=== PATIENT | female | born 1970 | race Caucasian/White ===

== ENCOUNTER → 2017-01-20 | Outpatient (CLI) | payer OTHER ==
--- NOTE | 2017-01-20 10:20 | US ---
EXAMINATION TYPE: US pelvis complete transvag DATE OF EXAM: 01/20/2017 COMPARISON: NONE CLINICAL HISTORY: 46-year-old female N92.4 menorrhagiaia. TECHNIQUE: Portable transabdominal sonographic images of the pelvis are obtained. Transvaginal scann ing was medically necessary to better evaluate the anatomy. Date of LMP: 01/13/17 FINDINGS: Uterus: Retroverted measuring 9.3 x 5.6 x 5.9 cm. There is diffuse myometrial heterogeneity. There i s a round 1.9 x 1.5 cm hypoechoic mass within the right anterior uterine fundus/body. This is intramu ral but has mass effect on to the anterior endometrium. Endometrial Stripe: 1.5 cm, thickened to the upper limits of normal. Trace fluid within the uterine c avity. Right Ovary: 3.2 x 2.0 x 2.1 cm for a volume of 7.1 mL. Left Ovary: 4.8 x 2.9 x 2.2 cm for a volume of 15.3 mL. Prominent follicular change is present. A 1.9 cm round hypoechoic structure within probably represents a corpus luteum. No evident adnexal abnormality or cul-de-sac free fluid. IMPRESSION: 1. Retroverted uterus. Myometrial heterogeneity may reflect diffuse small fibroid change or adenomyos is. 2. A 1.9 cm focal fibroid along the right anterior uterine fundus/body is primarily intramural but ma y have a submucosal component as there is mass effect onto the endometrium. 3. Endometrium thickened to the upper limits of normal with trace fluid in the uterine cavity. This s hould correspond to the late secretory or menstrual phase of the patient's cycle. Clinically correlat e. 4. Prominent follicular change in the left ovary.
--- NOTE | 2017-01-20 11:40 | ECHOF ---
Referral Reason:R00.2 palpitations MEASUREMENTS -------- HEIGHT: 165.1 cm WEIGHT: 68.0 kg BP: 129/63 IVSd: 0.8 cm (0.6 - 1.1) LVIDd: 3.9 cm (3.9 - 5.3) LVPWd: 1.0 cm (0.6 - 1.1) IVSs: 0.7 cm LVIDs: 3.0 cm LVPWs: 1.2 cm LAESV Index (A-L): 22.98 ml/m Ao Diam: 2.7 cm (2.0 - 3.7) AV Cusp: 1.5 cm (1.5 - 2.6) LA Diam: 3.5 cm (2.7 - 3.8) MV EXCURSION: 22.169 mm (> 18.000) MV EF SLOPE: 111 mm/s (70 - 150) EPSS: 0.2 cm MV E Roberto Carlos: 0.58 m/s MV DecT: 193 ms MV A Roberto Carlos: 0.59 m/s MV E/A Ratio: 0.97 RAP: 5.00 mmHg RVSP: 13.29 mmHg FINDINGS -------- Sinus rhythm. This was a technically good study. LV size, wall thickness and systolic function are normal, with an EF greater than 55%. The right ventricle is normal in size. Normal LA size by volume 22+/-6 ml/m2. The right atrial size is normal. The aortic valve is trileaflet, and appears structurally normal. No aortic stenosis or regurgitation. Mild mitral regurgitation is present. Mild tricuspid regurgitation present. There is no evidence of pulmonary hypertension. The right ventricular systolic pressure, as measured by Doppler, is 13.29mmHg. There is no pulmonic regurgitation present. The aortic root size is normal. There is no pericardial effusion. CONCLUSIONS -------- 1. LV size, wall thickness and systolic function are normal, with an EF greater than 55%. 2. Mild mitral regurgitation is present. 3. Mild tricuspid regurgitation present. 4. There is no evidence of pulmonary hypertension. 5. The right ventricular systolic pressure, as measured by Doppler, is 13.29mmHg. 6. There is no pulmonic regurgitation present. CORRECTION LIEUTENANT: Zainab Campbell RDCS
== END | disposition home or self-care (01) ==
LOC: RADUSMAIN 09:20
PROVIDERS: ATTEND Family Medicine
DX: D25.9 Leiomyoma of uterus, unspecified (principal); N85.4 Malposition of uterus; R93.8 Abnormal findings on diagnostic imaging of other specified body structures; I34.0 Nonrheumatic mitral (valve) insufficiency; I07.1 Rheumatic tricuspid insufficiency
CPT/HCPCS: 76830; 76856; 93225; 93226; 93306

== ENCOUNTER → 2019-02-04 | Outpatient (CLI) | payer OTHER ==
--- NOTE | 2019-02-05 13:51 | MM ---
Reason for exam: screening (asymptomatic). Last mammogram was performed 3 years ago. History: Family history of breast cancer in cousin at age 40. Took hormonal contraceptives for 2 years. Physical Findings: A clinical breast exam by your physician is recommended on an annual basis and results should be correlated with mammographic findings. MG 3D Screening Mammo W/Cad Bilateral CC and MLO view(s) were taken. Prior study comparison: January 28, 2016, bilateral MG 3d diag mammo w/cad [facility]. April 24, 2013, bilateral digital screening mammo w/CAD. The breast tissue is heterogeneously dense. This may lower the sensitivity of mammography. No suspicious abnormality on the right. Left upper outer quadrant middle depth architectural distortion on 3D. ASSESSMENT: Incomplete: need additional imaging evaluation, BI-RAD 0 RECOMMENDATION: Special view mammogram of the left breast. If lesion persists on supplemental views, image directed ultrasound is recommended. [facility] will attempt to contact patient to return for supplemental views and ultrasound if indicated.
== END | disposition home or self-care (01) ==
LOC: RADMAMWWP 10:57
PROVIDERS: ATTEND Obstetrics & Gynecology
DX: Z12.31 Encounter for screening mammogram for malignant neoplasm of breast (principal)
CPT/HCPCS: 77063; 77067

== ENCOUNTER → 2019-02-13 | Outpatient (CLI) | payer OTHER ==
--- NOTE | 2019-02-14 09:33 | MM ---
Reason for exam: additional evaluation requested from abnormal screening. Last mammogram was performed less than 1 month ago. History: Family history of breast cancer in cousin at age 40. Took hormonal contraceptives for 2 years. Physical Findings: Nurse did not find any significant physical abnormalities on exam. MG 3D Work Up W/Cad LT CC and MLO view(s) were taken of the left breast. Prior study comparison: February 04, 2019, bilateral MG 3d screening mammo w/cad. January 28, 2016, bilateral MG 3d diag mammo w/cad [facility]. The breast tissue is heterogeneously dense. This may lower the sensitivity of mammography. Focal asymmetry left LM rounded, not on CC. These results were verbally communicated with the patient and result sheet given to the patient on 02/13/19. ASSESSMENT: Incomplete: need additional imaging evaluation, BI-RAD 0 RECOMMENDATION: Ultrasound of the left breast.
--- NOTE | 2019-02-14 09:37 | USB ---
Reason for exam: additional evaluation requested from abnormal screening. History: Family history of breast cancer in cousin at age 40. Took hormonal contraceptives for 2 years. US Breast Workup Limited LT Left limited breast ultrasound including focal area of concern, retroareolar and axilla demonstrates a 0.8 x 0.5 x 0.5cm cystic lesion at 2 o'clock. These results were verbally communicated with the patient and result sheet given to the patient on 02/13/19. ASSESSMENT: Probably benign, BI-RAD 3 RECOMMENDATION: Follow-up diagnostic mammogram and ultrasound of the left breast in 6 months.
== END | disposition home or self-care (01) ==
LOC: RADMAMWWP 14:56
PROVIDERS: ATTEND Obstetrics & Gynecology
DX: R92.8 Other abnormal and inconclusive findings on diagnostic imaging of breast (principal)
CPT/HCPCS: 77061; 77065

== ENCOUNTER → 2020-02-14 | Outpatient (CLI) | payer OTHER ==
--- NOTE | 2020-02-17 07:58 | MM ---
Reason for exam: follow-up at short interval from prior study. Last mammogram was performed 1 year ago. History: Family history of breast cancer in cousin at age 40. Took hormonal contraceptives for 2 years. Physical Findings: Nurse Summary: 0.5cm nodule in the left breast at 12 o'clock (nurse clementine). MG 3D Diag Mammo W/Cad LT CC and MLO view(s) were taken of the left breast. Prior study comparison: February 13, 2019, left breast MG 3d work up w/cad LT. February 04, 2019, bilateral MG 3d screening mammo w/cad. The breast tissue is heterogeneously dense. This may lower the sensitivity of mammography. Benign appearing calcifications in the left breast. These results were verbally communicated with the patient and result sheet given to the patient on 02/14/20. ASSESSMENT: Incomplete: need additional imaging evaluation, BI-RAD 0 RECOMMENDATION: Ultrasound of the left breast.
--- NOTE | 2020-02-17 08:00 | USB ---
Reason for exam: additional evaluation requested from abnormal screening. History: Family history of breast cancer in cousin at age 40. Took hormonal contraceptives for 2 years. US Breast Limited LT Left limited breast ultrasound including focal area of concern, retroareolar and axilla demonstrates a 0.8 x 0.7 x 0.5cm oval, irregular, cystic cluster at 2 o'clock, a 0.4 x 0.5 x 0.2cm oval, complex, cystic lesion at 3 o'clock and a 2.0 x 2.1 x 0.8cm oval lymph node at the axilla. These results were verbally communicated with the patient and result sheet given to the patient on 02/14/20. ASSESSMENT: Probably benign, BI-RAD 3 RECOMMENDATION: Follow-up diagnostic mammogram of both breasts in 6 months.
== END | disposition home or self-care (01) ==
LOC: RADMAMWWP 14:21
PROVIDERS: ATTEND Obstetrics & Gynecology
DX: R92.8 Other abnormal and inconclusive findings on diagnostic imaging of breast (principal)
CPT/HCPCS: 77061; 77065

== ENCOUNTER → 2022-01-27 | Outpatient (CLI) | payer OTHER ==
--- NOTE | 2022-01-27 14:18 | MM ---
Reason for Exam: Follow-up at short interval from prior study. Last mammogram was performed 3 year(s) and 0 month(s) ago. Patient History: Menarche at age 14. First Full-Term at age 20. Patient used Hormonal Contraceptives for 2 years. Maternal cousin had breast cancer, age 40. Last menstrual period: 01/19/2022 Risk Values: Loretta 5 year model risk: 0.9%. NCI Lifetime model risk: 7.1%. Tissue Density: The breast tissue is heterogeneously dense. This may lower the sensitivity of mammography. Findings: Analyzed By CAD. Dense tissues are present in the upper outer quadrant on a background of scattered densities. Chronic low density nodularity anterior to middle depth right breast. 2 areas of asymmetric density left MLO view superiorly and anteriorly do not persist on spot 3-D images. Findings compatible with superimposition shadow. No significant change from prior exams. Overall Assessment: Benign, BI-RAD 2 Management: Screening Mammogram of both breasts in 1 year. 1. Patient should continue monthly self breast exams. 2. A clinical breast exam by your physician is recommended on an annual basis. 3. This exam should not preclude additional follow-up of suspicious palpable abnormalities. Results were given to the patient verbally at the time of exam. Electronically signed and approved by: Mlelo Yates M.D. Radiologist
== END | disposition home or self-care (01) ==
LOC: RADMAMWWP 13:24
PROVIDERS: ATTEND Family Medicine
DX: R92.8 Other abnormal and inconclusive findings on diagnostic imaging of breast (principal)
CPT/HCPCS: 77062; 77066

== ENCOUNTER → 2023-06-30 | Outpatient (CLI) | payer BC, OTHER ==
--- NOTE | 2023-06-30 13:13 | MM ---
Reason for Exam: Screening (asymptomatic). Last mammogram was performed 1 year(s) and 5 month(s) ago. Patient History: Menarche at age 14. First Full-Term at age 20. Patient used Hormonal Contraceptives for 2 years. Maternal cousin had breast cancer, age 40. Risk Values: Loretta 5 year model risk: 0.9%. NCI Lifetime model risk: 7.0%. Prior Study Comparison: 02/13/2019 Left Diagnostic Mammogram, [facility]. 02/14/2020 Left Diagnostic Mammogram, [facility]. 01/27/2022 Bilateral MG 3D diag mammo w/cad [facility], [facility]. Tissue Density: The breast tissue is heterogeneously dense. This may lower the sensitivity of mammography. Findings: Analyzed By CAD. There is no suspicious group of microcalcifications or new suspicious mass. Overall Assessment: Negative, BI-RAD 1 Management: Screening Mammogram of both breasts in [address] [facility] will attempt to contact patient to return for supplemental views and ultrasound if indicated. Patient should continue monthly self-breast exams. A clinical breast exam by your physician is recommended on an annual basis. This exam should not preclude additional follow-up of suspicious palpable abnormalities. Note on Loretta scores and lifetime risk: 1. A Loretta score greater than 3% is considered moderate risk. If this is the case, consider specialist referral to assess eligibility for a risk reducing agent. 2. If overall lifetime risk for the development of breast cancer is 20% or higher, the patient may qualify for future screening with alternating mammogram and breast MRI. Electronically signed and approved by: Jamil Alas DO
== END | disposition home or self-care (01) ==
LOC: RADMAMWWP 10:07
PROVIDERS: ATTEND Family Medicine
DX: Z12.31 Encounter for screening mammogram for malignant neoplasm of breast (principal); Z80.3 Family history of malignant neoplasm of breast
CPT/HCPCS: 77063; 77067